=== PATIENT | female | born 1975 | race Caucasian/White ===

== ENCOUNTER 2018-03-01 08:26 | Outpatient (CLI) | payer OTHER ==
--- NOTE | 2018-03-02 07:11 | Diagnostic Imaging Report ---
SHIMON ESTRADA [facility] [address] [facility] [address] [address] Report Submission Date: Mar 01, 2018 8:50:11 AM CDT Patient Study Name: JAVI GAINES Date: Mar 01, 2018 8:33:18 AM CDT Modality Type: DX Gender: F Description: UPPER EXTREMITY : 73 Institution: [facility] Physician: SHIMON ESTRADA Examination: Plain film left hand History: LEFT WRIST, PAIN IN LEFT WRIST X3-4 WEEKS. PT STATES SHE MAY HAVE INJURED IT WHILE OPENING A JAR (Hx) Comparison exams: None available Findings: 3 views the left hand demonstrate normal cortical margins. No fracture. No dislocation. No soft tissue abnormality. Impression: No acute osseous abnormality Electronically signed on Mar 01, 2018 8:50:11 AM CDT by: Quinten PEREIRA
== END 2018-03-01 08:35 ==
LOC: RAD 08:26
PROVIDERS: ATTEND Family Medicine
DX: M25.532 Pain in left wrist (principal)
CPT/HCPCS: 73110

== ENCOUNTER 2018-04-11 12:56 | Outpatient (CLI) | payer OTHER ==
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
== END 2018-04-11 12:58 ==
LOC: RAD 12:56
PROVIDERS: ATTEND Family Medicine
DX: M79.661 Pain in right lower leg (principal)
CPT/HCPCS: 73590

== ENCOUNTER 2019-09-03 14:17 | Outpatient (CLI) | payer OTHER ==
[2019-09-03 16:52] LABS: TSH 1.64 mIU/l (0.465-4.685)
== END 2019-09-03 14:22 ==
LOC: LAB 14:17
PROVIDERS: ATTEND Family Medicine
DX: Z13.29 Encounter for screening for other suspected endocrine disorder (principal)
CPT/HCPCS: 36415; 84439; 84443